=== PATIENT | male | born 1965 | race Caucasian/White ===

== ENCOUNTER 2018-07-06 06:13 | Day surgery (SDC) | payer OTHER ==
[~2018-07-06] VITALS: Ht 167.6 cm; Wt 83.5 kg
[~2018-07-06 06:13] MED LIST: DAPA10TA PO; INSU100I28 SQ; LINA1TAB5 PO; LIP40 PO; LISI40TA4 PO
[2018-07-06] MEDS ORDERED: BUPIVACAINE HCL/PF 0.5% (5MG/ML) 10ML ONE (06:53)
[2018-07-06] MEDS ORDERED: SKIN ADHESIVE 0.7 GM EA TOP ONE ×2 (06:53→11:41)
[2018-07-06 07:20] LABS: BASOPHILS % 0.3 % (0.0-2.0); EOSINOPHILS % 1.6 % (0.0-5.0); HEMATOCRIT. 45.4 % (42.0-52.0); HEMOGLOBIN. 15.2 g/dL (14.0-18.0); LYMPHOCYTES % 32.3 % (20.0-50.0); MEAN CORPUSCULAR HEMOGLOBIN 29.8 pg (28.0-32.0); MEAN CORPUSCULAR VOLUME 88.8 fL (80.0-94.0); MEAN PLATELET VOLUME 8.5 fl (7.4-10.4); MONOCYTES % 7.5 % (2.0-8.0); NEUTROPHILS % 58.3 % (40.0-76.0); PLATELET 239 x1000/uL (130-400); RED BLOOD CELL COUNT 5.11 mill/uL (4.7-6.1); RED CELL DISTRIBUTION WIDTH 13.7 % (11.6-14.6)
[2018-07-06 07:27] LABS: CHLORIDE 103 mEq/L (98-107)
[2018-07-06 07:30] LABS: INR 1.1; PARTIAL THROMBOPLASTIN TIME 31.3 sec (23.4-31.0)
[2018-07-06 07:45] LABS: CLARITY URINE CLEAR (CLEAR); COLOR URINE YELLOW (YELLOW); KETONES URINE NEGATIVE (NEGATIVE); LEUKOCYTE ESTERASE URINE NEGATIVE (NEGATIVE); NITRITE URINE NEGATIVE (NEGATIVE); OCCULT BLOOD URINE NEGATIVE (NEGATIVE); PH URINE 5.5 (4.5-8.0); PROTEIN URINE NEGATIVE (NEGATIVE); SPECIFIC GRAVITY URINE 1.026 (1.005-1.030); UROBILINOGEN URINE 0.2 E.U./dL (0.2-1.0)
[2018-07-06] MEDS ORDERED: SODIUM CHLORIDE 0.9% 1,000 ML IV SCH (08:35)
[2018-07-06] MEDS ORDERED: EMPA10TA PO (09:52)
[2018-07-06] MEDS ORDERED: NEOSTIGMINE METHYLSULFATE 1MG/ML 10 ML VIAL ONE (11:00)
[2018-07-06] MEDS ORDERED: ROCURONIUM BROMIDE 10MG/ML VIAL 5ML IV ONE (11:00)
[2018-07-06] MEDS ORDERED: PROPOFOL 200MG/20ML VIAL IV ONE (11:01)
[2018-07-06] MEDS ORDERED: CEFAZOLIN SODIUM 1000MG/VIAL ONE (11:01)
[2018-07-06] MEDS ORDERED: GLYCOPYRROLATE 0.2 MG/ML 2ML VIAL ONE (11:01)
[2018-07-06] MEDS ORDERED: ONDANSETRON HCL 4MG/2ML INJ ONE ×2 (11:01→11:15)
[2018-07-06] MEDS ORDERED: METOCLOPRAMIDE HCL 10MG/2ML VIAL ONE ×2 (11:01→11:15)
[2018-07-06] MEDS ORDERED: MIDAZOLAM HCL 2 MG/2 ML VIAL ONE (11:01)
[2018-07-06] MEDS ORDERED: FENTANYL CITRATE/PF 50MCG/ML 2ML VIAL ONE (11:02)
[2018-07-06] MEDS ORDERED: MEPERIDINE HCL/PF 25MG/ML CPJ IV PRN (12:00)
[2018-07-06] MEDS ORDERED: HYDROMORPHONE HCL/PF 2MG/ML CPJ IV PRN (12:00)
[2018-07-06] MEDS ORDERED: HYDROCODONE/ACETAMINOPHEN 10/325MG TABLET PO NR (13:00)
== END 2018-07-06 13:30 | disposition home or self-care (01) ==
LOC: OR 06:13
PROVIDERS: ATTEND Surgery
DX: K42.9 Umbilical hernia without obstruction or gangrene (principal); I10 Essential (primary) hypertension; E11.9 Type 2 diabetes mellitus without complications; E78.00 Pure hypercholesterolemia, unspecified; E66.3 Overweight; Z79.899 Other long term (current) drug therapy; Z98.890 Other specified postprocedural states; Z79.4 Long term (current) use of insulin; Z79.01 Long term (current) use of anticoagulants
CPT/HCPCS: 36415; 49585; 71045; 80048; 81003; 82962; 85025; 85610; 85730; 93005; C1781; J0690; J2250; J2405; J2710; J2765; J3010; J3490; J2704